=== PATIENT | male | born 1955 | race Caucasian/White ===

== ENCOUNTER 2018-03-20 17:59 | Observation (INO) ==
[2018-03-20] MEDS ORDERED: *HR* Promethazine 25 MG/ML VIAL IVP ONE (18:17)
[2018-03-20] MEDS ORDERED: 0.9 % Sodium Chloride 1,000 ML IVC ONE ×2 (18:17→22:06)
[2018-03-20] MEDS ORDERED: Lidocaine/EPI 1:100k 1% 30 ML VIAL INFILT ONE (18:23)
[2018-03-20] MEDS ORDERED: Lidocaine -MPF 1% 2 ML VIAL INFILT ONE (18:24)
[2018-03-20 19:06] LABS: Basophils % 0.2 %; Eosinophils # 0.1 K/mcL (0.0-0.6); Eosinophils % 0.6 %; Hematocrit 40.2 % (37.5-50.1); Hemoglobin 13.9 g/dL (12.9-16.9); Immature Granulocytes % 0.2 % (0-4); Lymphocytes # 1.5 K/mcL (0.6-4.6); Lymphocytes % 17.6 %; Mean Corpuscular HGB Conc 34.6 g/dL (31.6-35.5); Mean Corpuscular Hemoglobin 32.9 pg (28.0-33.3); Mean Corpuscular Volume 95.3 fL (83.0-100.0); Mean Platelet Volume 10.8 fL (9.4-12.4); Monocytes # 0.8 K/mcL (0.0-1.3); Monocytes % 9.4 %; Neutrophils # 6.1 K/mcL (1.6-8.9); Nucleated Red Blood Cells 0.2 /100 WBC (0); Platelet Count 177 K/mcL (140-400); Red Blood Count 4.22 M/mcL (4.19-5.50); Red Cell Distribution Width 17.2 % (11.5-14.5)
[2018-03-20 19:33] LABS: Albumin 3.6 g/dL (3.5-5.7); Albumin/Globulin Ratio 1.5 (1.1-2.2); Bilirubin,Direct 0.3 mg/dL (0.0-0.2); Bilirubin,Indirect 0.6 mg/dL (0.0-1.2); Bilirubin,Total 0.9 mg/dL (0.3-1.0); Globulin 2.4 g/dL (2.4-3.5); Potassium 3.4 mEq/L (3.5-5.1)
--- NOTE | 2018-03-20 19:33 | Emergency Department Note ---
Disposition Clinical Impression: Dehydration Intractable nausea and vomiting Qualifiers: Vomiting type: unspecified Qualified Code(s): R11.2 - Nausea with vomiting, unspecified Pancreatic cancer Qualifiers: Pancreatic malignancy location: unspecified Qualified Code(s): C25.9 - Malignant neoplasm of pancreas, unspecified Disposition: Admitted As Inpatient Condition: Fair Referrals: Kurt Petersen Jr, MD [Primary Care Provider] - Forms: ED Satisfaction Letter, Work/School Release Time of Disposition: 19:55 General Adult HPI - General Chief complaint: ED Abdominal Pain Stated complaint: N/V-cancer patient Time Seen by Provider: 03/20/18 18:03 Source: family Mode of arrival: ambulatory Limitations: no limitations, physical limitation Nursing Notes Reviewed: Yes Vital Signs Reviewed: Yes - History of Present Illness HPI Narrative: 63-year-old male presents emergency room for vomiting. Patient states he has been having persistent vomiting for the past 10 days. Was seen by his oncologist few days ago and was given some IV fluids. He returns today for increasing nausea and vomiting. He states he is unable to keep any food down. He does have known pancreatic cancer and is undergoing chemotherapy as well as oral chemotherapy for this. His last round of IV chemotherapy was over a week ago. He denies any documented fevers. He is moving his bowels but states that its very watery at times. He denies abdominal pain. No other complaints. Pain Scale: 3 - Related Data Home Medications Medication Instructions Recorded Confirmed Albuterol Sulfate [Proair Hfa] 2 puff IH Q4H PRN 05/28/17 03/16/18 Atenolol [Tenormin] 50 mg PO DAILY 05/28/17 03/16/18 Insulin ASPART [Novolog Flexpen] 5 unit SQ TIDWM 05/28/17 03/16/18 Insulin Glargine,Hum.rec.anlog 15 unit SQ DAILY 05/28/17 03/16/18 [Lantus Solostar] Simvastatin [Zocor] 40 mg PO HS 05/28/17 03/16/18 Previous Rx's Medication Instructions Recorded Lidocaine/Prilocaine [Emla] 1 appl TP ONCE #30 gm 06/03/17 Capecitabine [Xeloda] 500 mg PO AD #49 tablet 10/19/17 amLODIPine [Norvasc] 10 mg PO DAILY #60 tablet 11/05/17 OxyCODONE/APAP 5/325 [Percocet 1 - 2 each PO Q4HR PRN 30 Days 02/17/18 5/325 MG] #180 tablet FentaNYL PATCH [Duragesic] 25 mcg TD Q72H 30 Days #10 03/05/18 patch.td72 Dicyclomine [Bentyl] 10 mg PO TID #30 capsule 03/16/18 Ondansetron [Zofran] 8 mg PO Q8HR PRN #30 tablet 03/16/18 Promethazine [Phenergan] 25 mg PO Q6HR #60 tablet 03/16/18 Allergies Allergy/AdvReac Type Severity Reaction Status Date / Time Penicillins [PCN] Allergy Intermediate Rash Verified 03/20/18 18:01 All systems ED: reviewed and negative except as stated. Constitutional: Reports: weakness Eyes: Reports: as per HPI ENT ED: Reports: as per HPI Cardiovascular: Denies: chest pain, palpitations Respiratory: Denies: cough, dyspnea, wheezes Gastrointestinal: Reports: nausea, vomiting. Denies: diarrhea Genitourinary: Reports: as per HPI Musculoskeletal: Reports: as per HPI Integumentary: Reports: as per HPI Neurological: Reports: as per HPI Psychiatric: Reports: as per HPI Endocrine: Reports: as per HPI Hematological/Lymphatic: Reports: as per HPI Allergic/Immunologic: Reports: as per HPI Past Medical History - Past Medical History Medical history: Reports: cancer, diabetes, hyperlipidemia, hypertension Surgical history: Reports: no surgical history Psychiatric history: Reports: no psych history - Social History Smoking Status: Current every day smoker Smokeless Tobacco Status: No Alcohol use: Reports: none Drug use: Reports: none Physical Exam - General Limitations: no limitations General appearance: other - Head Head exam: atraumatic, normocephalic - Eye Eye exam: Present: normal appearance - ENT ENT exam: normal exam - Neck Neck exam: Present: normal inspection - Chest Chest inspection: Present: normal inspection, symmetric chest wall rise - Respiratory Respiratory exam: Present: normal lung sounds bilaterally. Absent: respiratory distress, wheezes, stridor - Cardiovascular Cardiovascular exam: Present: regular rate, normal rhythm, normal heart sounds - Abdominal Exam Abdominal exam: Present: soft, Non-Tender, normal bowel sounds - Extremities Exam Extremities exam: Present: normal inspection - Expanded Lower Extremity Exam Hip/Pelvis exam: Present: normal inspection - Back Exam Back exam: Present: normal inspection - Neurological Exam Neurological exam: Present: alert, oriented X3 - Psychiatric Psychiatric exam: Present: normal affect, normal mood - Skin Skin exam: Present: warm, dry, intact Course Vital Signs Temperature 97.6 F 03/20/18 18:00 Pulse Rate 92 03/20/18 18:00 Respiratory Rate 16 03/20/18 18:00 Blood Pressure 110/72 03/20/18 18:00 O2 Sat by Pulse Oximetry 98 03/20/18 18:00 Temperature 97.6 F 03/20/18 18:03 Pulse Rate 84 03/20/18 19:52 Respiratory Rate 16 03/20/18 19:52 Blood Pressure 167/82 03/20/18 19:52 O2 Sat by Pulse Oximetry 98 03/20/18 18:03 Oxygen Delivery Oxygen Delivery Room Air Medical Decision Making - MDM Narrative Medical decision making narrative: Patient has evidence of a prerenal azotemia based on his lab work. CT scan abdomen and pelvis without contrast as compared to a CT scan within the past month did not show any significant change. There is no evidence of any acute bowel obstruction. Patient has evidence of a known pancreatic mass. This is still present. He has an reactive ascites in the abdomen. His white count is normal. He does have elevation of his BUN/creatinine. Patient will be admitted overnight for observation for IV fluids and antiemetics. - Medical Records Medical records reviewed: Yes I reviewed the patient's medical records. - Lab Data Lab results reviewed: Yes I reviewed the patient's lab results. Result diagrams: 03/20/18 18:55 03/20/18 18:55 Lab Results 03/20/18 03/20/18 Range/Units 18:55 18:55 WBC 8.5 (4.3-11.1) K/mcL RBC 4.22 (4.19-5.50) M/mcL Hgb 13.9 (12.9-16.9) g/dL Hct 40.2 (37.5-50.1) % MCV 95.3 (83.0-100.0) fL MCH 32.9 (28.0-33.3) pg MCHC 34.6 (31.6-35.5) g/dL RDW 17.2 H (11.5-14.5) % Plt Count 177 (140-400) K/mcL MPV 10.8 (9.4-12.4) fL Immature Gran % 0.2 (0-4) % Seg Neutrophils % 72.0 % Lymphocytes % 17.6 % Monocytes % 9.4 % Eosinophils % 0.6 % Basophils % 0.2 % Neutrophils # 6.1 (1.6-8.9) K/mcL Lymphocytes # 1.5 (0.6-4.6) K/mcL Monocytes # 0.8 (0.0-1.3) K/mcL Eosinophils # 0.1 (0.0-0.6) K/mcL Basophils # 0.0 (0.0-0.2) K/mcL Nucleated RBCs/100 WBC 0.2 H (0) /100 WBC Sodium 138 (136-145) mEq/L Potassium 3.4 L (3.5-5.1) mEq/L Chloride 94 L (98-107) mEq/L Carbon Dioxide 30 H (23-29) mEq/L BUN 36 H (8-23) mg/dL Creatinine 1.48 H (0.70-1.30) mg/dL Est GFR ( Amer) 58 L (> 60) Est GFR (Non-Af Amer) 48 L (> 60) BUN/Creatinine Ratio 24 (6-26) Glucose 118 H (70-105) mg/dL Calculated Osmolality 295 (280-300) Calcium 11.0 H (8.6-10.3) mg/dL Total Bilirubin 0.9 (0.3-1.0) mg/dL Direct Bilirubin 0.3 H (0.0-0.2) mg/dL Indirect Bilirubin 0.6 (0.0-1.2) mg/dL AST 18 (13-39) Units/L ALT 9 (7-52) Units/L Alkaline Phosphatase 94 (34-104) Units/L Serum Total Protein 6.0 L (6.4-8.9) g/dL Albumin 3.6 (3.5-5.7) g/dL Globulin 2.4 (2.4-3.5) g/dL Albumin/Globulin Ratio 1.5 (1.1-2.2) Lipase 19 (11-82) Units/L - Radiology Data Radiology results reviewed: Yes I reviewed the patient's radiology results.
--- NOTE | 2018-03-20 20:54 | Internal Med History&Physical ---
Date of Encounter: 03/21/18 Time of Encounter: 20:21 Internal Medicine - H&P: HPI Chief complaint: intractable vomiting Admitted From: Home Plans for Post Hospital Care: Home History of present illness: Mr. Blanton is a 63 year old male with a pmh of pancreatic cancer, diabetes, and hypertension who presented to the ED with intractable nausea and vomiting. Patient stated that the nausea and vomiting began last . He has been unable to keep fluids or food down for the last 3-4 days. He has diffuse abdominal pain which does not feel different from his chronic abdominal pain. He has had associated loose stools about 2-3 times a day for the last week. He has not had this previously. He was on chemotherapy orally and IV recently which he has not been on this intensity of chemotherapy before. His last chemotherapy pill was on Thursday. Upon arrival to the ED, patient's vitals are within normal limits. Labs showed a potassium 3.4, creatinine of 1.48 ( previous normal), CT abdomen and pelvis without contrast compared to previous CT did not show any significant change but of note there is reactive ascites in the abdomen, limited bowel evaluation but no obstruction seen. In the ED patient was given 1 L normal saline and Phenergan. Patient obtained relief from nausea and vomiting after being given the Phenergan. Patient was admitted to the hospital for intractable nausea and vomiting and MAYITO. Past Med Surg Social Fam HX - Past Medical History Medical history: cancer, diabetes, hyperlipidemia, hypertension Additional medical history: pancreatic cancer Psychiatric history: no psych history - Past Surgical History Surgical History: no surgical history - Social History Smoking Status: Current every day smoker Smokeless Tobacco Status: No Alcohol use: none Drug use: none - Family History Mother Hx Family Cardiac Disorders: Yes (VA fatal) Father Hx Family Cardiac Disorders: Yes (VA with stents) Hx Family Respiratory Disorders: Yes (COPD) Hx Family Endocrine Disorder: Yes Internal Medicine - H&P: Meds Insulin Glargine,Hum.rec.anlog [Lantus Solostar] 15 unit SQ DAILY 05/28/17 [ History] Simvastatin [Zocor] 40 mg PO HS 05/28/17 [History] Lidocaine/Prilocaine [Emla] 1 appl TP ONCE #30 gm 06/03/17 [Rx] amLODIPine [Norvasc] 10 mg PO DAILY #60 tablet 11/05/17 [Rx] OxyCODONE/APAP 5/325 [Percocet 5/325 MG] 1 - 2 each PO Q4HR PRN 30 Days #180 tablet 02/17/18 [Rx] FentaNYL PATCH [Duragesic] 25 mcg TD Q72H 30 Days #10 patch.td72 03/05/18 [Rx] Ondansetron [Zofran] 8 mg PO Q8HR PRN #30 tablet 03/16/18 [Rx] Promethazine [Phenergan] 25 mg PO Q6HR #60 tablet 03/16/18 [Rx] 3 Allergy/AdvReac Type Severity Reaction Status Date / Time Penicillins [PCN] Allergy Intermediate Rash Verified 03/20/18 18:01 All Systems PM: A 10-system review of systems was performed and is negative for pertinent findings except as documented above in the HPI. - Constitutional Vitals: Temp Pulse Resp BP Pulse Ox 97.6 F 84 16 167/82 98 03/20/18 18:03 03/20/18 19:52 03/20/18 19:52 03/20/18 19:52 03/20/18 18:03 Exam: Constitutional: Alert, in no acute distress, Head: mucous membranes dry, normocephalic, atraumatic Heart: Normal, regular rate and rhythm, no murmurs Lungs: Clear to auscultation, no wheezes, rales, or rhonchi Abdomen: abdomen diffusely tender, soft, nondistended, no guarding or rigidity. Extremities: No edema, No clubbing, radial pulse +2/4, capillary refill <2sec. Skin: Skin warm and dry, no lesions, no rashes, no jaundice Neurologic: , strength 5/5 in all extremities Psych: Cooperative with exam, good eye contact, cognitive function intact, speech clear, thought process logical, and goal directed Internal Med - H&P Results - Labs CBC & Chem 7: 03/20/18 18:55 03/20/18 18:55 - Assessment and plan (1) Intractable nausea and vomiting Current Visit: Yes Status: Acute Assessment and plan: Most likely 2/2 to increase chemotherapy over the last 2 week. Oncology is following outpatient. Plan: - Zofran and Phenergan IV Qualifiers: Vomiting type: unspecified Qualified Code(s): R11.2 - Nausea with vomiting , unspecified (2) MAYITO (acute kidney injury) Current Visit: Yes Status: Acute Assessment and plan: MAYITO likely 2/2 to hypoperfusion from dehydration. Previous creatinine within normal limits. 1 L bolus given in the ED. Plan: -1L NS bolus now, total of 2 L - recheck BMP in the AM (3) Hypokalemia Current Visit: Yes Status: Acute Assessment and plan: Mild hypokalemia most likely 2/2 to vomiting causing metabolic alkalosis. Plan: - potassium chloride 40 meq - recheck K in the AM (4) Adenocarcinoma of pancreas, stage 4 Current Visit: No Status: Acute Assessment and plan: Pancreatic cancer on chemotherapy. Oncology following outpatient. 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
[2018-03-20] MEDS ORDERED: *HR* Promethazine 25 MG/ML VIAL IVP PRN (21:43)
[2018-03-20] MEDS ORDERED: Naloxone 0.4 MG/ML INJ IVP PRN (22:20)
[2018-03-20] MEDS ORDERED: Ondansetron 4 MG/2 ML VIAL IVP PRN (22:26)
[2018-03-20] MEDS: *HR* Heparin 5,000 UNIT/ML VIAL SQ SCH (23:45)
[2018-03-21] MEDS ORDERED: Dextrose Gel 15 GM/37.5 ML TUBE PO PRN ×2 (02:08)
[2018-03-21] MEDS ORDERED: D5% in Water 1,000 ML IVC PRN (02:08)
[2018-03-21] MEDS ORDERED: *HR* Dextrose 50 % in Water (Syg) 50 ML SYRINGE IVP PRN (02:08)
[2018-03-21 03:29] LABS: BUN/Creatinine Ratio 27 (6-26); Blood Urea Nitrogen 35 mg/dL (8-23); Calcium 10.4 mg/dL (8.6-10.3); Carbon Dioxide 31 mEq/L (23-29); Chloride 99 mEq/L (98-107); Glucose 112 mg/dL (70-105); Magnesium 2.1 mg/dL (1.6-2.6); Osmolality,Calculated 299 (280-300); Phosphorous 3.4 mg/dL (2.7-4.5); Potassium 3.3 mEq/L (3.5-5.1); Sodium 140 mEq/L (136-145); eGFR For African Americans > 60 (> 60); eGFR For Non-African Americans 55 (> 60)
[2018-03-21] MEDS: *HR* OxyCODONE/APAP 5/325 TABLET PO PRN ×2 (05:23→19:27)
[2018-03-21] MEDS: *HR* Heparin 5,000 UNIT/ML VIAL SQ SCH ×2 (05:23→19:40)
[2018-03-21] MEDS ORDERED: *HR* OxyCODONE/APAP 5/325 TABLET PO SCH (08:00)
[2018-03-21] MEDS: Insulin LISPRO 300 UNITS/3 ML VIAL SQ SCH ×3 (08:30→17:00)
[2018-03-21] MEDS ORDERED: Potassium Chloride 40 MEQ, Lidocaine 1% 2 ML in D5% in Water 500 ML IVPB ONE (10:57)
[2018-03-21] MEDS ORDERED: *HR* FentaNYL PATCH 25 MCG PATCH TD SCH ×2 (11:00→14:00)
[2018-03-21] MEDS: 0.9 % Sodium Chloride 1,000 ML IVC SCH ×2 (11:57→22:09)
[2018-03-21] MEDS: Ondansetron 4 MG/2 ML VIAL IVP SCH ×4 (12:04→23:24)
[2018-03-21] MEDS: Pantoprazole 40 MG VIAL IVP SCH (12:04)
--- NOTE | 2018-03-21 13:49 | Internal Med Progress Note ---
Date of Encounter: 03/21/18 Time of Encounter: 13:46 - Assessment and plan (1) Intractable nausea and vomiting Current Visit: Yes Status: Acute Assessment and plan: Multifactorial most likely secondary to chemotherapy, electrolyte imbalance with dehydration. Supportive treatment IV fluid normal saline 100 mL per hour, electrolyte replacement and monitor, increase to friends 4 mg every 4 hours. stopped Phenergan as patient state that makes him vomiting. Patient also complained of diarrhea therefore GI panel ordered. Qualifiers: Vomiting type: unspecified Qualified Code(s): R11.2 - Nausea with vomiting , unspecified (2) Adenocarcinoma of pancreas, stage 4 Current Visit: No Status: Acute Assessment and plan: Pancreatic cancer with metastases, on chemotherapy. Oncology following outpatient. (3) MAYITO (acute kidney injury) Current Visit: Yes Status: Acute Assessment and plan: Prerenal due to dehydration. Trending down creatinine level. Close monitoring of BMP. Avoid nephrotoxic drug. (4) Hypokalemia Current Visit: Yes Status: Acute Assessment and plan: Replacement and close monitoring. Normal magnesium level. (5) Diabetes type 2, controlled Current Visit: Yes Status: Acute Assessment and plan: Accu-Chek every 6 hours while nothing by mouth. 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 Feeling very weak and tired. Family at bedside and has the concern Patient denies fever chills chest pain shortness of breath no new abdominal pain but has chronic abdominal pain. Reviewed the lab - Constitutional Vitals: Temp Pulse Resp BP Pulse Ox 97.8 F 83 17 157/76 95 03/21/18 11:53 03/21/18 11:53 03/21/18 11:53 03/21/18 11:53 03/21/18 11:53 Exam: General appearance: No acute distress, A&O X 3, appeared very tired. Family at bedside, appear dehydrated Head exam: Atraumatic Eye exam: EOMI, PERRLA ENT exam: Dry oral mucosa Neck nontender, supple Respiratory exam: Clear to auscultation bilaterally Cardiovascular exam: Regular rate and rhythm, no systolic murmur Abdominal exam: Soft, mild diffuse tender but has been chronic as per patient, nondistended, positive bowel sounds Extremities exam: No calf tenderness, no pedal edema Present: Skin-no rash, warm, dry, intact Neurological exam: CN II-XII intact, no focal deficits. No facial droop. Normal speech. Internal Medicine: Result - Labs CBC & Chem 7: 03/20/18 18:55 03/21/18 02:48 Labs: BMP 03/21/18 02:48 Sodium 140 Potassium 3.3 L Chloride 99 Carbon Dioxide 31 H BUN 35 H Creatinine 1.31 H Glucose 112 H Calcium 10.4 H Consult Discharge Plan - Plan Referrals: Kurt Petersen Jr, MD [Primary Care Provider] - (Your appointment has been webrequested. Our offices will contact you with an appointment time and date. If you do not hear from us, please feel free to call and schedule an appointment with your primary care provider. )
[2018-03-21] MEDS ORDERED: *HR* OxyCODONE/APAP 5/325 TABLET PO PRN (13:55)
[2018-03-21] MEDS: Lactobacillus 1 EACH CAP.SPRINK PO SCH (19:44)
[2018-03-21] MEDS ORDERED: Insulin LISPRO 300 UNITS/3 ML VIAL SQ SCH (21:00)
[2018-03-22 02:17] LABS: Adenovirus F 40/41 PCR Not detected (Not detect); Astrovirus PCR Not detected (Not detect); Campylobacter by PCR Not detected (Not detect); Cryptosporidium by PCR Not detected (Not detect); Cyclospora cayetanensis PCR Not detected (Not detect); E. coli O157 by PCR Not detected (Not detect); Entamoeba histolytica PCR Not detected (Not detect); Enteroaggregative E.coli(EAEC) Not detected (Not detect); Enteropathogenic E.coli(EPEC) Not detected (Not detect); Enterotoxigenic E.coli (ETEC) Not detected (Not detect); Giardia lamblia PCR Not detected (Not detect); Norovirus GI/GII PCR Not detected (Not detect); Plesiomonas shigelloides PCR Not detected (Not detect); Rotavirus A PCR Not detected (Not detect); Salmonella PCR Not detected (Not detect); Sapovirus PCR Not detected (Not detect); Shig/EnteroinvasiveE coli EIEC Not detected (Not detect); Shigalike tox-prod E coli STEC Not detected (Not detect); Vibrio PCR Not detected (Not detect); Vibrio cholerae PCR Not detected (Not detect); Yersinia enterocolitica PCR Not detected (Not detect)
[2018-03-22 02:19] LABS: C.difficile Toxin A/B by PCR See reflex test (Not detect)
[2018-03-22] MEDS: Ondansetron 4 MG/2 ML VIAL IVP SCH ×3 (03:31→12:54)
[2018-03-22] MEDS: *HR* OxyCODONE/APAP 5/325 TABLET PO PRN (03:32)
[2018-03-22] MEDS: *HR* Heparin 5,000 UNIT/ML VIAL SQ SCH (03:54)
[2018-03-22] MEDS: Vancomycin Oral Soln 125 MG/2.5 ML UDC PO SCH ×2 (04:10→13:46)
[2018-03-22] MEDS: 0.9 % Sodium Chloride 1,000 ML IVC SCH (05:39)
[2018-03-22] MEDS: Lactobacillus 1 EACH CAP.SPRINK PO SCH (08:26)
[2018-03-22] MEDS: Pantoprazole 40 MG VIAL IVP SCH (08:27)
[2018-03-22] MEDS: Insulin LISPRO 300 UNITS/3 ML VIAL SQ SCH ×2 (08:45→11:49)
[2018-03-22] MEDS ORDERED: amLODIPine 5 MG TABLET PO SCH (09:00)
--- NOTE | 2018-03-22 09:16 | Discharge Summary ---
- NOTES TO OUTPATIENT PROVIDER Notes to Outpatient Provider: Pt admitted for intractable nausea and vomiting post chemo. Having a lot of diarrhea as well. C diff was positive and he was started on PO Vancomycin. Today he insists on going home. He is tolerating PO diet. He is still having diarrhea but feels able to keep up with fluid loss. Needs potassium rechecked soon. Orders not resulted at time of discharge: Pending orders 03/22/18 08:46 Complete Blood Count [HEME] Routine Comprehensive Metabolic Panel Routine Magnesium Routine Date of Encounter: 03/22/18 Time of Encounter: 09:12 - Discharge Diagnosis (1) C. difficile colitis Priority: Primary Status: Acute (2) Adenocarcinoma of pancreas, stage 4 Priority: Secondary Status: Chronic (3) Intractable nausea and vomiting Priority: Secondary Status: Resolved Qualifiers: Vomiting type: unspecified Qualified Code(s): R11.2 - Nausea with vomiting , unspecified (4) MAYITO (acute kidney injury) Priority: Secondary Status: Resolved (5) Hypokalemia Priority: Secondary Status: Acute (6) Diabetes type 2, controlled Priority: Secondary Status: Chronic Qualifiers: Diabetes mellitus halfway insulin use: with sap fico architect use Diabetes mellitus complication status: with unspecified complications Qualified Code(s) : E11.8 - Type 2 diabetes mellitus with unspecified complications; Z79.4 - retirement (current) use of insulin Hospital course: Mr. Blanton is a 63 year old male with hx of stage 4 pancreatic cancer currently receiving chemo presented with intractable nausea and vomiting. He was subsequently placed in observation. Mr Blanton was placed in observation. He was given IV fluids and antiemetics. He had improvement in nausea but was having diarrhea. This was positive for C diff and he was started on PO Vancomycin. Today he is afebrile. He is tolerating some diet. He continues to have diarrhea but feels he can keep up with fluid loss. Family is at bedside as well. He will be discharged on PO Vanc and follow up with PCP and heme/onc. Discharge discussed with: patient, family - Time Spent with Patient Total time spent providing and/or coordinating discharge services: 37min - Discharge Medications Prescriptions: Vancomycin Oral Soln [Firvanq] 125 mg PO QID 10 Days #40 [facility] [place] Medications: Insulin Glargine,Hum.rec.anlog [Lantus Solostar] 15 unit SQ DAILY 05/28/17 [ History] Simvastatin [Zocor] 40 mg PO HS 05/28/17 [History] Lidocaine/Prilocaine [Emla] 1 appl TP ONCE #30 gm 06/03/17 [Rx] OxyCODONE/APAP 5/325 [Percocet 5/325 MG] 1 - 2 each PO Q4HR PRN 30 Days #180 tablet 02/17/18 [Rx] FentaNYL PATCH [Duragesic] 25 mcg TD Q72H 30 Days #10 patch.td72 03/05/18 [Rx] Ondansetron [Zofran] 8 mg PO Q8HR PRN #30 tablet 03/16/18 [Rx] Capecitabine [Xeloda] 500 mg PO AD 03/21/18 [History] amLODIPine [Norvasc] 5 mg PO DAILY 03/21/18 [History] Lactobacillus [Culturelle] 1 each PO BID cap.sprink 03/22/18 [Rx] Vancomycin Oral Soln [Firvanq] 125 mg PO QID 10 Days #40 udc 03/22/18 [Rx] Allergies/Adverse Reactions: 3 Allergy/AdvReac Type Severity Reaction Status Date / Time Penicillins [PCN] Allergy Intermediate Rash Verified 03/20/18 18:01 Date of admission: 03/20/18 20:02 Primary care physician: Kurt Petersen Jr, MD Discharging clinician: Giovani Mendoza Anticipated date of discharge: 03/22/18 - Constitutional Vitals: Temp Pulse Resp BP Pulse Ox 98.1 F 81 15 161/72 95 03/22/18 07:32 03/22/18 07:32 03/22/18 07:32 03/22/18 07:32 03/22/18 07:32 General appearance: Present: A&O X 3, answers questions appropriately - Head Head exam: Present: normocephalic - Eye Eye exam: Present: conjuntiva pink - ENT ENT exam: Present: mucous membranes moist - Respiratory Respiratory exam: Present: CTAB. Absent: rhonchi, wheezes - Cardiovascular Cardiovascular exam: Present: RRR. Absent: tachycardia - GI/Abdominal GI/Abdominal exam: Present: soft - Extremities Exam Extremities exam: Present: warm. Absent: tenderness - Neurological Exam Neurological exam: Present: alert, oriented X3 - Skin Skin exam: Present: dry, warm - Patient Status Disposition: Home, Self-Care Condition: Fair Functional capacity at discharge: independent ambulation Overall status at discharge: patient is progressing back to baseline - Discharge Instructions Instructions: Vancomycin (By mouth), Clostridium Difficile Infection (DC) Follow Up With: Kurt Petersen Jr, MD [Primary Care Provider] - 03/29/18 10:00 am ( ) - Diet and Activity Activity: increase activity as tolerated Diet: advance to your usual diet
[2018-03-22 09:33] LABS: Basophils % 0.3 %; Eosinophils # 0.1 K/mcL (0.0-0.6); Eosinophils % 2.9 %; Hematocrit 37.7 % (37.5-50.1); Immature Granulocytes % 0.3 % (0-4); Lymphocytes # 1.5 K/mcL (0.6-4.6); Lymphocytes % 43.3 %; Mean Corpuscular HGB Conc 34.5 g/dL (31.6-35.5); Mean Corpuscular Hemoglobin 33.5 pg (28.0-33.3); Mean Corpuscular Volume 97.2 fL (83.0-100.0); Mean Platelet Volume 11.9 fL (9.4-12.4); Monocytes # 0.6 K/mcL (0.0-1.3); Monocytes % 17.5 %; Neutrophils # 1.2 K/mcL (1.6-8.9); Platelet Count 157 K/mcL (140-400); Red Blood Count 3.88 M/mcL (4.19-5.50); Red Cell Distribution Width 17.7 % (11.5-14.5); Segmented Neutrophils % 35.7 %
[2018-03-22 09:59] LABS: Alanine Aminotransferase 9 Units/L (7-52); Albumin 2.9 g/dL (3.5-5.7); Albumin/Globulin Ratio 1.5 (1.1-2.2); Alkaline Phosphatase 71 Units/L (34-104); Aspartate Amino Transferase 17 Units/L (13-39); BUN/Creatinine Ratio 28 (6-26); Bilirubin,Total 0.6 mg/dL (0.3-1.0); Blood Urea Nitrogen 36 mg/dL (8-23); Calcium 10.2 mg/dL (8.6-10.3); Carbon Dioxide 28 mEq/L (23-29); Chloride 102 mEq/L (98-107); Glucose 124 mg/dL (70-105); Osmolality,Calculated 294 (280-300); Potassium 3.1 mEq/L (3.5-5.1); Sodium 137 mEq/L (136-145); Total Protein 4.9 g/dL (6.4-8.9); eGFR For African Americans > 60 (> 60); eGFR For Non-African Americans 57 (> 60)
[2018-03-22 10:49] LABS: Platelet Estimate Normal (Normal)
[2018-03-22 11:34] VITALS: BP 158/76
== END 2018-03-22 16:24 | disposition home or self-care (01) ==
LOC: 3BNU 17:59 → EMEROO 17:59 → SUATTDRO 20:02 → 3BNU 20:20
PROVIDERS: ADMIT Family Medicine; ATTEND Internal Medicine